=== PATIENT | female | born 1960 | race Caucasian/White ===

== ENCOUNTER → 2019-12-22 | Outpatient (CLI) | payer BC | LOC: SJCVCIMAG 13:19 | PROVIDERS: ATTEND Internal Medicine | DX: R55 Syncope and collapse (principal) ==

== ENCOUNTER 2020-03-16 07:56 | Observation (INO) | payer BC ==
[~2020-03-16] VITALS: Ht 167.6 cm; Wt 58.1 kg
[2020-03-16] MEDS ORDERED: CRESTOR10 MG PO (08:05)
[2020-03-16 09:16] VITALS: BP 119/60
[2020-03-16 09:30] LABS: HEMOGLOBIN 12.5 gm/dL (12.0-15.0); MCH 28.9 pg (26.0-34.0); MCHC 32.8 g/dL (28.0-37.0); MCV 87.9 fL (80.0-100.0); RBC 4.32 mil/uL (4.20-5.00); WBC 5.4 thou/uL (4.0-11.0)
[2020-03-16 09:46] LABS: PROTIME 10.7 Seconds (9.3-11.4)
[2020-03-16 09:48] LABS: CALCIUM 9.5 mg/dL (8.5-10.1); CREATININE 0.8 mg/dL (0.6-1.0); POTASSIUM 4.1 mmol/L (3.5-5.1)
[2020-03-16 09:54] LABS: TOTAL PROTEIN 7.5 g/dL (6.4-8.2)
--- NOTE | 2020-03-16 12:33 | H ---
[facility] [place] [address] HISTORY AND PHYSICAL Name: MICAH COSTA Room #: REG Merna LoboJuan#: [id number] Admission: 03/16/20 Attend Phys: Mc Odom Discharge: Date of : 60 Report #: [id number] THIS REPORT FOR: cc: Archana Brand MD, Julie MD Lammoglia,Mc Trent MD ~ CC: Mc Brand HISTORY OF PRESENT ILLNESS: This is a very pleasant 60-year-old female patient who had history of syncope. Has undergone outpatient evaluation with monitor demonstrating second-degree type 2 block evident. The patient subsequently was sent for a second opinion as per insurance requirements for need of permanent pacing. She now presents after all assessment and evaluation for dual chamber pacer implantation. PHYSICAL EXAMINATION: GENERAL: Well-developed, well-nourished female, resting comfortably, in no acute distress. VITAL SIGNS: Noted and reviewed in the chart. HEENT: Normocephalic, atraumatic. Pupils are equal, round, reactive to light and accommodation. Extraocular muscles are intact. Sclerae and conjunctivae are anicteric. NECK: JVD is normal. Carotid upstrokes are bilaterally symmetrical. No bruits are heard. No thyromegaly. No lymphadenopathy. LUNGS: Clear to auscultation. No wheezes, rhonchi or crackles. No CVA tenderness. CARDIAC: Demonstrates a regular rhythm. Normal first and second heart sounds. No ventricular or atrial gallops, no rubs noted. No murmurs. No lifts or heaves, PMI normal. ABDOMEN: Soft, nontender, nondistended. Normal bowel sounds. EXTREMITIES: Without cyanosis, clubbing or edema. Distal pulses are intact. DTR symmetrical. NEUROLOGIC: Cranial nerves 2-12 are grossly normal and symmetrical. PSYCHIATRIC: Alert, oriented with normal affect. SKIN: Warm and dry. 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 In view of these findings, likelihood of the progression to complete heart block and high-grade block is high based on literature. Dual chamber pacer was recommended. The risks, complications and alternative to dual chamber implantation including perforation, infection, pneumothorax, but not excluding [facility] [address] [place] [address] HISTORY AND PHYSICAL Name: MICAH COSTA Room #: REG [facility].#: [id number] Admission: 03/16/20 Attend Phys: Mc Odom Discharge: Date of : 60 Report #: [id number] others was discussed with the patient. She does voice an understanding and wished to proceed. <ELECTRONICALLY SIGNED> By: Mc Odom MD 03/16/20 1233 [id number] [id number] Mc Odom MD /nt
[2020-03-16 17:12] VITALS: BP 116/62
--- NOTE | 2020-03-16 18:49 | NUR ---
ASSESSMENT CHARTED - PT TO THE UNIT POST PACERMAKER PLACEMENT. PT WITH CO'S OF SLIGHT COUGH POST PROCEDURE - DR URENA UP TO SEE PATIENT AND CHEST XRAY COMPLETED - PATIENT WITH PNUEMO ON THE LEFT - DR HOLLAND IN TO PLACE CHEST TUBE. VALERIA DIET AND FLUIDS. WHEN PT WTOOD UP IN XRAY SHE BECAME SHORT OF BREATH AND CLAMMY - RETUNED TO UNIT POST TEST PT NO LONGER CO'S OF THIS AND VSS. DRESSING TO PACER SITE C/D/I. NO CO'S OF PAIN OR NAUSEA.
[2020-03-16 20:41] VITALS: BP 114/64
[2020-03-17 00:02] VITALS: BP 105/52
[2020-03-17 04:00] VITALS: BP 113/56
--- NOTE | 2020-03-17 04:41 | NUR ---
CARE ASSUMED AT 1900 S/P PACEMAKER PLACEMENT. LEFT CHEST INCISION SITE DRESSING C/D/I. AT THE BEGINNING OF THE SHIFT, PT HAD CHEST TUBE PACED AFTER CHEST X-RAY SHOWED A PNEUMOTHORAX BY DR. HOLLAND. REPEAT CHEST X-RAY CONFIRMED PNEUMOTHORAX RESOLVED. PT C/O LEFT CHEST PAIN AFTER CHEST TUBE PLACEMENT. PAIN DOES NOT RADIATE BUT SHARP WITH DEEP BREATHES. PAIN NOT ALLEVIATED BY TYLENOL. 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 ORDER OF TORADOL 30 MG X 1, HYDROCODONE 5/325 GIVEN. PT IS SR TO AV PACED. ALL OTHER ASSESSMENTS DOCUMENTED. NO OTHER CONCERNS. WILL CONTINUE TO MONITOR AND FOLLOW POC
[2020-03-17 08:20] VITALS: BP 121/66
[2020-03-17 12:10] VITALS: BP 112/52
--- NOTE | 2020-03-17 15:07 | NUR ---
AAOX4. PNEUMO HAS LARGELY RESOLVED WITH CT IN PLACE. DENIES CP, SOA. A-PACED PER TELE. WILL CONTINUE TO FOLLOW CLOSELY.
[2020-03-17 15:25] VITALS: BP 113/58
[2020-03-17 18:56] VITALS: BP 110/63
[2020-03-18 03:36] LABS: ABSOLUTE NEUTROPHILS 4.3 thou/uL (1.4-8.2); BASOPHILS 0.6 % (0.0-2.0); EOSINOPHILS 1.8 % (0.0-3.0); HEMATOCRIT 36.6 % (37.0-47.0); HEMOGLOBIN 12.3 gm/dL (12.0-15.0); LYMPHOCYTES 28.7 % (24.0-44.0); MCH 29.4 pg (26.0-34.0); MCHC 33.6 g/dL (28.0-37.0); MCV 87.5 fL (80.0-100.0); MONOCYTES 6.8 % (1.0-8.0); PLATELET COUNT 218 thou/uL (150-400); POLYS 62.1 % (36.0-66.0); RBC 4.18 mil/uL (4.20-5.00); RDW 13.2 % (10.5-14.5); WBC 6.9 thou/uL (4.0-11.0)
[2020-03-18 03:41] LABS: CALCIUM 9.3 mg/dL (8.5-10.1); CREATININE 0.7 mg/dL (0.6-1.0); POTASSIUM 4.4 mmol/L (3.5-5.1)
[2020-03-18 04:00] VITALS: BP 112/57
--- NOTE | 2020-03-18 07:35 | NUR ---
ASSUMED CARE OF PATIENT AT 1900; ASSESSMENTS CHARTED; SR/APACED ON THE MONITOR; AOX4; LT CHEST TUBE C/D/I; REMOVED CHEST TUBE 03/17 AND ADDED 2L VIA N/C FOR NOC; PLAN IS CXR IN AM WITH POSSIBLE DISCHARGE TO HOME.
[2020-03-18 11:17] VITALS: BP 112/57
--- NOTE | 2020-03-20 15:38 | CATHLAB ---
[facility] [address] ([address]: [place]) [place] [address] INVASIVE PROCEDURE REPORT Name: MICAH COSTA Room #: 211-P [facility] [place] M.RJuan#: [id number] Admission: 03/16/20 Attend Phys: Mc Odom Discharge: 03/18/20 Date of : 60 Report #: [id number] THIS REPORT FOR: cc: Archana Brand MD, Julie MD Lammoglia, Francisco J. MD ~ APPROVED REPORT Study performed: 03/16/2020 10:08:22 Patient Status: Out-Patient Room #: Event Personnel: Mc Odom Disc Inspector, Bro Alonzo RN RN, Samara An RTR ScrubDustin Sherra RTR Monitor Exam: Insertion of Dual Chamber Permanent Pacemaker Indications: 60-year-old female patient with history of near syncope syncope and second-degree type II block The patient is a 60 year-old female with a history of Second-degree type II block and near syncopal and syncopal episodes. Conscious Sedation Versed 4 mg Implanted Devices: RV LEAD; [employer] MODEL #5076-52 CM, SN:[id number], EXP:2021-12-04 RA LEAD; [employer] MODEL #5076-45 CM,SN:[id number], EXP:2022-01-08 GENERATOR; [employer] MODEL# [id number] MANAN S DR DAYANNA RAMOS, SN:[id number],EXP: 2021-07-08 Procedure The patient underwent informed consent. We discussed the details of the procedure including the risks, which include, but not limited to bleeding, infection, vascular damage, cardiac perforation, and pneumothorax. She understood these risks and was willing to proceed. As such, she was brought to the EP/Cardiac Catheterization laboratory in a fasting and sedated state and prepped and draped in a sterile fashion, received IV antibiotics prior to initiation of the procedure and a venogram was performed showing patency of the left axillary vein. The patient underwent conscious sedation, with no related complications. The patient was brought to the EP/Cardiac Catheterization laboratory [address] [address] INVASIVE PROCEDURE REPORT Name: MICAH COSTA Room #: 211-P [facility] [place] .R.#: [id number] Admission: 03/16/20 Attend Phys: Mc Reeves Discharge: 03/18/20 Date of : 60 Report #: [id number] and the left chest and shoulder were prepped and draped in a sterile manner. During this case, Fluoroscopy and visipaque 20cc were used for imaging. The left subclavian region was infiltrated with 2% Lidocaine subcutaneous anesthesia. A transverse incision was made in the left upper chest cavity. The subcutaneous pocket was formed via blunt dissection. Percutaneous venous access was achieved and an introducer sheath was inserted into the left Subclavian vein. Sheaths were positions using the modified Seldinger technique Through the introducer sheaths the atrial and ventricular lead wires were positioned in the right atrial appendage and right ventricular apex respectively. Utilizing fluoroscopic guidance, the atrial and ventricular lead wires were advanced over the wires and positioned in the right atria and right ventricle respectively. Capturing and sensing thresholds were verified. Electrode Parameters P Wave: 1.4 mV R Wave: 9.8 Atrial Threshold: 0.4@ 0.4 Ventricular Threshold: 0.4 @ 0.5 Atrial Resistance: 418 ohms Ventricular Resistance: 532 ohms Dual Chamber The atrial and ventricular leads were then secured using 2.0 ethibond sutures. The subcutaneous pocket was irrigated with ancef antibiotic solution.The atrial and ventricular leads were attached to the appropriate receptacles on the pulse generator and set screws firmly tightened to insure adequate contact and stability. The lead and pulse generator were placed into the subcutaneous pocket. Sharp and sponge counts were confirmed to be correct. At this time the pocket was closed subcutaneously with a 2-0 nonabsorbable suture utilizing a running locking stitch and the skin was closed with a 3-0 Vicryl in a subcuticular stitch. Complications The patient tolerated the procedure well and there were no complications associated with the procedure. Findings Estimated Blood Loss: 10 cc Conclusion 1. Successful insertion of a dual-chamber pacemaker [facility] [address] [place] [address] INVASIVE PROCEDURE REPORT Name: IGORMICAHELIF EDMONDS Room #: 211-P [facility] [place] M.R.#: [id number] Admission: 03/16/20 Attend Phys: Mc Reeves Discharge: 03/18/20 Date of : 60 Report #: [id number] Recommendations 1. Routine post pacer insertion protocol <ELECTRONICALLY SIGNED> By: Mc Odom MD 03/20/20 1537 [id number] Mc Odom MD /INF
--- NOTE | 2020-03-23 11:12 | D ---
[facility] [place] [address] DISCHARGE SUMMARY Name: MICAH COSTA Room #: 211-P [facility] M.RJuan#: [id number] Admission: 03/16/20 Attend Phys: Mc Odom Discharge: 03/18/20 Date of : 60 Report #: [id number] THIS REPORT FOR: cc: Archana Brand MD,Jimy Callejas MD, MD ~ THIS REPORT FOR: //name// CC: Mc Brand DISCHARGE DIAGNOSES: 1. Heart block. 2. Pneumothorax. PROCEDURES PERFORMED: Dual-chamber pacemaker implantation. HISTORY: The patient is a 60-year-old female who came in for elective dual chamber pacemaker implantation. Procedure was successful, but complicated by pneumothorax requiring chest tube. Her chest tube was monitored by the Pulmonary Service, which pulled it on Thursday and the patient had a repeat chest x-ray this morning, which I reviewed with Pulmonary and they feel comfortable with allowing the patient to go home today. As such, she will be discharged home this morning. She denies any fevers or chills, chest pain or shortness of breath. PHYSICAL EXAMINATION: HEART: Regular rate and rhythm. LUNGS: Clear to auscultation bilaterally. ABDOMEN: Soft, nontender VITAL SIGNS: Stable. Telemetry showed no significant arrhythmias. As such, she is deemed stable for discharge home. <ELECTRONICALLY SIGNED> By: Jimy Lucero MD 03/23/20 1112 1112 [id number] Jimy Lucero MD /lesley
== END 2020-03-18 12:53 | disposition home or self-care (01) ==
LOC: CATH 07:56 → 2N 09:24 → CATH 10:23 → 2N 14:08 → CATH 14:11 → 2N 03-18 12:53
PROVIDERS: Internal Medicine Cardiovascular Disease; ADMIT Internal Medicine; ATTEND Internal Medicine
DX: I45.9 Conduction disorder, unspecified (principal); J93.9 Pneumothorax, unspecified; R55 Syncope and collapse; Z79.899 Other long term (current) drug therapy
CPT/HCPCS: 10797